=== PATIENT | female | born 1970 | race Caucasian/White ===

== ENCOUNTER 2023-08-27 16:08 | Emergency (ER) | payer OTHER ==
[2023-08-27 16:46] VITALS: BP 155/100; PULSE 75; RESP 20; TEMP 97.8; O2SAT 93
[2023-08-27 17:37] LABS: Appearance Clear (Clear); Bacteria Many /HPF (None Seen); Bilirubin Negative (Negative); Blood Negative (Negative); Glucose, Urine >=1000 mg/dL (Negative); Hyaline Casts NONE SEEN /LPF (0-2); Ketones Negative (Negative); Leukocyte Esterase Trace (Negative); Nitrite Positive (Negative); Protein,Urine Dip Negative (Negative); Specific Gravity 1.025 (1.005-1.030)
[2023-08-27 17:38] LABS: ADD URINE CULTURE? YES (NO); Epithelial Cells Rare /HPF (None Seen); RBC 0-2 /HPF (0-5)
--- NOTE | 2023-08-27 18:10 | ERPHSYRPT ---
- History of Present Illness Time Seen by Provider: 08/27/23 16:45 Source: patient Patient Subjective Stated Complaint: Hyperglycemia Triage Nursing Assessment: Patient ambulated back to ED and transferred self to bed. Patient A+O x 3. Patient's skin pink, warm and dry. Patient complains of hyperglycemia for the past 3 weeks as high as [id number]. Patient states she has increased drowsiness. Patient denies pain or discomfort. Patient was prescribed metformin, but unable to tolerate, so was prescribed Mounjara and Ozempic, but insurance will not cover it. Physician History: Patient is a 53-year-old female presents to our ED for evaluation of hyperglycemia. Hypoglycemia has been occurring for approximately 3 weeks. Sugars have been running from 2 29-4 10. Patient is a known diabetic. However she is unable to take metformin as it makes her feel sick. Patient was then prescribed Ozempic and Mounjaro however these medications not covered by insurance. Hence that she has not taken any antihyperglycemic's. However patient recently changed her insurance. She will follow-up with her primary care doctor tomorrow to see whether or not there is a medication that is suitable and financially practical. She has no other complaints. Patient voices no other complaints or concerns at this time. Timing/Duration: week(s) (3 weeks) Severity: moderate Modifying Factors: Improves With: nothing Associated Symptoms: denies symptoms Allergies/Adverse Reactions: latex Allergy (Verified 08/27/23 16:31) Sulfa (Sulfonamide Antibiotics) Allergy (Verified 08/27/23 16:31) Hx Tetanus, Diphtheria Vaccination/Date Given: No Hx Influenza Vaccination/Date Given: No Hx Pneumococcal Vaccination/Date Given: No Immunizations Up to Date: Yes Travel Risk - International Travel Have you traveled outside of the country in past 3 weeks: No - Coronavirus Screening Are you exhibiting any of the following symptoms?: No Close contact with a COVID-19 positive Pt in past 14-21 Days: No - Vaccine Status Have you recieved a Covid-19 vaccination: Yes Repairer Helper: Unknown - Vaccination Dates Dates if Unknown: na - Review of Systems Constitutional: No Symptoms, No Fever, No Chills Eyes: No Symptoms Ears, Nose, & Throat: No Symptoms Respiratory: No Symptoms, No Cough, No Dyspnea Cardiac: No Symptoms, No Chest Pain, No Edema, No Syncope Abdominal/Gastrointestinal: No Symptoms, No Abdominal Pain, No Nausea, No Vomiting, No Diarrhea Genitourinary Symptoms: No Symptoms, No Dysuria Musculoskeletal: No Symptoms, No Back Pain, No Neck Pain Skin: No Symptoms, No Rash Neurological: No Symptoms, No Dizziness, No Focal Weakness, No Sensory Changes Psychological: No Symptoms Endocrine: No Symptoms Hematologic/Lymphatic: No Symptoms Immunological/Allergic: No Symptoms All Other Systems: Reviewed and Negative - Past Medical History Pertinent Past Medical History: Yes Neurological History: No Pertinent History ENT History: No Pertinent History Cardiac History: No Pertinent History Respiratory History: No Pertinent History Endocrine Medical History: Diabetes Type II Musculoskeletal History: No Pertinent History GI Medical History: No Pertinent History History: No Pertinent History Psycho-Social History: Depression Female Reproductive Disorders: Breast Cancer Other Medical History: Right breast - Past Surgical History Past Surgical History: Yes Neuro Surgical History: No Pertinent History Cardiac: No Pertinent History Respiratory: No Pertinent History Gastrointestinal: No Pertinent History Genitourinary: No Pertinent History Musculoskeletal: No Pertinent History Female Surgical History: Mastectomy Other Surgical History: Mesectomy 2020 - Social History Smoking Status: Current every day smoker How long have you smoked: years Exposure to second hand smoke: No Drug Use: none Patient Lives Alone: No - Nursing Vital Signs Nursing Vital Signs: Initial Vital Signs Temperature 97.8 F 08/27/23 16:35 Pulse Rate 75 08/27/23 16:35 Respiratory Rate 20 08/27/23 16:35 Blood Pressure 155/100 08/27/23 16:35 O2 Sat by Pulse Oximetry 93 L 08/27/23 16:35 Pain Scale Pain Intensity 0 - Physical Exam General Appearance: no apparent distress, alert Eye Exam: PERRL/EOMI, eyes nml inspection Ears, Nose, Throat Exam: normal ENT inspection, TMs normal, pharynx normal, moist mucous membranes Neck Exam: normal inspection, non-tender, supple, full range of motion Respiratory Exam: normal breath sounds, lungs clear, airway intact, No respiratory distress Cardiovascular Exam: regular rate/rhythm, normal heart sounds, normal peripheral pulses Gastrointestinal/Abdomen Exam: soft, normal bowel sounds, No tenderness, No mass Back Exam: normal inspection, normal range of motion, No CVA tenderness, No vertebral tenderness Extremity Exam: normal inspection, normal range of motion, pelvis stable Neurologic Exam: alert, oriented x 3, cooperative, normal mood/affect, nml cerebellar function, nml station & gait, sensation nml, No motor deficits Skin Exam: normal color, warm, dry, No rash Lymphatic Exam: No adenopathy SpO2 Interpretation: normal SpO2: 93 O2 Delivery: Room Air - Course Nursing assessment & vital signs reviewed: Yes Ordered Tests: Active Orders 24 hr Category Date Time Status CULTURE,URINE Stat Lab 08/27/23 16:59 Received POCT GLUCOSE Stat Lab 08/27/23 16:42 Completed UA W/RFX UR CULTURE Stat Lab 08/27/23 16:59 Completed Lab/Rad Data: Laboratory Results 08/27/23 08/27/23 Range/Units 16:59 16:42 POC Glucometer 229 H (74 to 106) mg/dL Urine Color Yellow (Yellow) Urine Appearance Clear (Clear) Urine pH 6.0 (4.6-8.0) Ur Specific [place] 1.025 (1.005-1.030) Urine Protein Negative (Negative) Urine Glucose (UA) >=1000 A (Negative) mg/dL Urine Ketones Negative (Negative) Urine Blood Negative (Negative) Urine Nitrite Positive A (Negative) Urine Bilirubin Negative (Negative) Urine Urobilinogen 1.0 A (0.2) mg/dL Ur Leukocyte Esterase Trace A (Negative) U Hyaline Cast (Auto) NONE SEEN (0-2) /LPF Urine Microscopic RBC 0-2 (0-5) /HPF Urine Microscopic WBC 3-5 (0-5) /HPF Ur Epithelial Cells Rare (None Seen) /HPF Calcium Oxalate Crystal 3-5 A (None Seen) /HPF Urine Bacteria Many A (None Seen) /HPF Urine Culture Reflexed YES (NO) - Progress Progress: improved Progress Note: 53-year-old female known diabetic untreated presents to our ED with hyperglycemia. Urinalysis shows no ketones. Patient otherwise asymptomatic. However urinalysis shows urinary tract infection. This may be causing her sugars to go up higher beyond baseline. Patient received a dose of Macrobid in our ED. A prescription for the same was forwarded to patient's pharmacy. Patient has a follow-up appointment scheduled with her primary care doctor tomorrow to look into the possibility of finding a oral antihyperglycemic medication that suits her financially. Patient received a dose of Macrobid in our ED. No indication for further workup at this time. Will discharge home. Patient voices no other complaints or concerns at this time. Portions of this note were created with voice recognition technology. There may be grammatical, spelling, punctuation or sound alike errors Complexity of problem addressed is low at complicated No critical care time Complexity of data reviewed and analyzed is moderate. Risk of complication and a risk of morbidity/mortality of patient management is moderate. A prescription for Macrobid forwarded to patient's pharmacy. Vital stable. Time spent to discharge patient is approximately 15 minutes. Plan of care established for shared decision making. No social determinants of health present impede follow-up. Portions of this note were created with voice recognition technology. There may be grammatical, spelling, punctuation or sound alike errors 08/27/23 18:05 08/27/23 18:11 Counseled pt/family regarding: lab results, diagnosis, need for follow-up - Departure Departure Disposition: Home Clinical Impression: Hyperglycemia, UTI (urinary tract infection) Condition: Stable Critical Care Time: No Referrals: MISHEL KINGSTON MD [Primary Care Provider] - Follow up/PCP as directed Additional Instructions: Discharge/Care Plan BRYANT ALFARO was seen on 08/27/23 in the Emergency Room. The patient was counseled regarding Diagnosis,Lab results, Imaging studies, need for follow up and when to return to the Emergency Room. Prescriptions given: Discharge Note I have spoken with the patient and/or caregivers. I have explained the patient's condition, diagnosis and treatment plan based on the information available to me at this time. I have answered the patient's and/or caregiver's questions and addressed any concerns. The patient and/or caregivers have as good understanding of the patient's diagnosis, condition and treatment plan as can be expected at this point. The vital signs have been stable. The patient's condition is stable and appropriate for discharge from the emergency department. The patient will pursue further outpatient evaluation with the primary care physician or other designated or consulting physician as outlined in the discharge instructions. The patient and/or caregivers are agreeable to this plan of care and follow-up instructions have been explained in detail. The patient and/or caregivers have received these instruction. The patient/and or caregivers are aware that any significant change in condition or worsening of symptoms should prompt an immediate return to this or the closest emergency department or call 911. Prescriptions: Nitrofurantoin Macro 100 mg [Macrobid 100MG Capsule] 100 mg PO BID 7 Days #14 cap
[2023-08-27] MEDS ORDERED: Macrobid 100MG Capsule ONE (18:12)
[2023-08-27] MEDS: Macrobid 100MG Capsule PO ONE (18:14)
== END 2023-08-27 18:22 | disposition home or self-care (01) ==
LOC: ED 16:08
DX: E11.65 Type 2 diabetes mellitus with hyperglycemia (principal); N39.0 Urinary tract infection, site not specified; Z72.0 Tobacco use
CPT/HCPCS: 81001; 82947; 87077; 87086; 87186; 99282; A9270-GY